=== PATIENT | female | born 1950 | race Caucasian/White ===

== ENCOUNTER 2023-01-10 13:23 | Outpatient (CLI) | payer MEDICARE | END 2023-01-10 13:24 | disposition home or self-care (01) | LOC: CSHMRI 13:23 | PROVIDERS: ATTEND Neurological Surgery | DX: M48.062 Spinal stenosis, lumbar region with neurogenic claudication (principal); Z98.890 Other specified postprocedural states; M47.816 Spondylosis without myelopathy or radiculopathy, lumbar region; I70.0 Atherosclerosis of aorta; M51.16 Intervertebral disc disorders with radiculopathy, lumbar region; M51.46 Schmorl's nodes, lumbar region | CPT/HCPCS: 72100; 72148 ==